=== PATIENT | male | born 1960 | race Caucasian/White ===

== ENCOUNTER → 2017-10-01 | Outpatient (CLI) | payer OTHER ==
[~2017-10-01] MED LIST: ALBU0.5N2 NEB; BNT10 PO; CLN200 PO; CMBIN INH; FLM4 PO; GABA-113 PO; METO50TA8 PO; NTRGSL/4 UT; OXGN; PRIM50TA29 PO; PRLSR20 PO; SODIUM CHLORIDE NEB; TIOTCAP INH
--- NOTE | 2017-10-01 10:21 | DIAGNOSTIC IMAGING REPORT ---
GI SERIES W/AIR ROUTINE CLINICAL HISTORY: REFLUX, EPIGASTRIC PAIN COMPARISON STUDY: None FLUOROSCOPY TIME: 1.8 minutes. NUMBER OF FLUOROSCOPIC IMAGES: 18 FINDINGS: The patient swallowed effervescent granules and barium without difficulty. No discrete gastric masses or ulcerations are visualized. There is mild nonspecific gastric rugal fold thickening along the greater curvature. There is a small hiatal hernia with distal esophageal ring. There is disordered esophageal motility. There is no gastric outlet obstruction. No duodenal bulb ulcers are visualized. The ligament Treitz is located in the normal anatomical position. IMPRESSION: 1. Mild nonspecific gastric rugal fold thickening along the greater curvature 2. Sliding hiatal hernia with a distal esophageal ring. Electronically signed by: Nasir Burns M.D. 10/01/2017 10:19 AM Dictated Date/Time: 10/01/2017 10:07 AM
== END | disposition home or self-care (01) ==
LOC: C.RAD 09:30
PROVIDERS: ATTEND Nurse Practitioner Family
DX: K44.9 Diaphragmatic hernia without obstruction or gangrene (principal); R63.4 Abnormal weight loss; R63.0 Anorexia; R05 Cough